=== PATIENT | female | born 1970 | race Caucasian/White ===

== ENCOUNTER 2020-11-30 17:00 | Emergency (ER) | payer OTHER ==
[~2020-11-30] VITALS: Ht 149.9 cm; Wt 59.0 kg
[2020-11-30] MEDS ORDERED: HYDROCODON-ACE1 EAC7 PO (17:26)
[2020-11-30 17:49] VITALS: BP 119/69
== END 2020-11-30 17:50 | disposition home or self-care (01) ==
LOC: M.ERS 17:00
DX: S80.02XA Contusion of left knee, initial encounter (principal); Z88.1 Allergy status to other antibiotic agents; Z88.8 Allergy status to other drugs, medicaments and biological substances; W18.39XA Other fall on same level, initial encounter; Y93.89 Activity, other specified; Y92.89 Other specified places as the place of occurrence of the external cause; Y99.8 Other external cause status